=== PATIENT | female | born 1975 | race Hispanic/Latino ===

== ENCOUNTER 2016-06-15 01:28 | Emergency (ER) | payer OTHER ==
[2016-06-15] MEDS ORDERED: GENTAMICIN 0.3% OPHTH SOL 5 ML BTL As Ordered ONE (02:08)
--- NOTE | 2016-06-15 03:06 | EDDOCDS ---
Physician Documentation [facility] Name: Michelle Lazo Age: 41 yrs Sex: Female : 1975 Arrival Date: 06/15/2016 Time: 01:28 Bed TR8 Private MD: Disposition: 06/15/16 02:07 Discharged to Home/Self Care. Impression: Conjunctivitis - Acute, Bilateral. - Condition is Stable. - Discharge Instructions: Conjunctivitis (Viral and Bacterial). - Prescriptions for Gentamicin 0.3 % Ophthalmic Drops - instill 2 drops by OPHTHALMIC route every 4 hours Both eyes; 1 bottle. - Work Release Form - 2 day, Medication Reconciliation, Local Pharmacy Hours form. - Follow up: Private Physician; When: 1 - 2 days; Reason: Recheck today's complaints, Continuance of care. Follow up: Emergency Department; Reason: Worsening of conditions. Follow up: Tomi Powers; When: 1 - 2 days; Reason: Further diagnostic work-up, Recheck today's complaints, Continuance of care. - Problem is new. - Symptoms have improved. Historical: - Allergies: No known drug Allergies; - Home Meds: 1. multivitamin Oral tab 1 tab daily 2. albuterol sulfate 90 mcg/actuation Inhl HFAA 1 puff as needed 3. liver oil daily 4. med for depression - PMHx: Exercise-induced Asthma; light sensitivity; Migraine Headaches; Depression; - PSHx: ; - Social history: Smoking status: Patient uses tobacco products, current some day smoker. No barriers to communication noted, The patient speaks fluent German, Speaks appropriately for age. - Family history: Not pertinent. - : The pt / caregiver states he / she is not on anticoagulants. Home medication list is obtained from the patient, [employer] import data. - Exposure Risk Screening:: None identified. 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 9 in. (175.26 cm) (R); Pain 2/10; 01:41 Body Mass Index 27.32 (83.91 kg, 175.26 cm) km Visual Acuity: 03:05 ; NA [facility] MDM: 02:02 Pulse ox spot check ordered. ef1 02:04 Gentamicin Drops 0.3 % 2 drps Ophthalmic once; Left eye ordered. ef1 02:30 Financial registration complete. pm4 02:30 [facility] Payment Agreement was scanned into [employer] and attached to record. pm4 Administered Medications: 02:13 Drug: Gentamicin 2 drps [gentamicin 0.3 % eye drops (2 drps)] Route: Ophthalmic; Site: [facility] both eyes; Signatures: Tamera Wallace RN RN kmg1 Regina Prado, PA-C PA-C ef1 Jeb Aviles, Reg Reg pm4 The chart was reviewed and I authenticate all verbal orders and agree with the evaluation and treatment provided.Attachments: 02:30 [facility] Payment Agreement pm4 MTDD
--- NOTE | 2016-06-15 03:06 | EDDOCDS ---
Nurse's Notes [facility] Name: Michelle Lazo Age: 41 yrs Sex: Female : 1975 Arrival Date: 06/15/2016 Time: 01:28 Bed TR8 Private MD: Diagnosis: Conjunctivitis-Acute, Bilateral Presentation: 06/15 01:35 Adult Sepsis Screening: The patient does not have new or worsening altered mentation. kmg1 Patient's respiratory rate is less than 22. Systolic blood pressure is greater than 100. Patient has a qSOFA score of 0- Negative Sepsis Screen. 01:36 Presenting complaint: Patient states: "I have pink eye.". Mechanism of Injury: No km Mechanism of Injury. The patient denies any loss of vision. Suicide/Homicide risk assessment- the patient denies having any suicidal and/or homicidal ideations and does not present with any other emotional, behavioral or mental health complaints. 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 Transition of care: patient was not received from another setting of care. 01:36 Acuity: DILIA Level 5 [facility] 01:36 Method Of Arrival: Walkin/Carried/Asstd [facility] Triage Assessment: 01:41 General: Appears in no apparent distress, comfortable, Behavior is appropriate for age, kmg1 cooperative, pleasant. Pain: Location: right eye and left eye Pain currently is 1 out of 10 on a pain scale. Quality of pain is described as poking. HIV screening NA for this visit Offered previously. EENT: Eyes with exudate noted from inner aspect of conjunctiva of left eye and left inner canthus Lid(s) red. 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 multivitamin Oral tab 1 tab daily 2. albuterol sulfate 90 mcg/actuation Inhl HFAA 1 puff as needed 3. liver oil daily 4. med for depression - PMHx: Exercise-induced Asthma; light sensitivity; Migraine Headaches; Depression; - PSHx: ; - Social history: Smoking status: Patient uses tobacco products, current some day smoker. No barriers to communication noted, The patient speaks fluent [place], Speaks appropriately for age. - Family history: Not pertinent. - : The pt / caregiver states he / she is not on anticoagulants. Home medication list is obtained from the patient, [employer] import data. - Exposure Risk Screening:: None identified. Screenin:45 Screening information is obtained from the patient. Fall risk: No risks identified. km Assistance ADL's: requires no assistance with activities of daily living. Abuse/DV Screen: The patient / caregiver reports he/she is: not in a situation that causes fear, pain or injury. Nutritional screening: No deficits noted. Advance Directives: There is no active DNR order. home support is adequate. Assessment: :45 General: See Triage Assessment. [facility] 02:15 Reassessment: Patient appears in no apparent distress at this time. Patient states [facility] symptoms have not improved. No change in prior assessment. Drainage cleaned from left eye and drops applied to both. Vital Signs: 01:41 BP 113 / 78; Pulse 76; Resp 18; Temp 98.1(TE); Pulse Ox 100% on R/A; Weight 83.91 kg km (R); Height 5 ft. 9 in. (175.26 cm) (R); Pain 2/10; 01:41 Body Mass Index 27.32 (83.91 kg, 175.26 cm) [facility] Vitals: 01:41 Log In Time: June 15, 2016 at 01:30. [facility] Visual Acuity: 03:05 ; NA [facility] ED Course: 01:29 Patient visited by Marixa Hogan, Reg. hs2 01:29 Patient moved to Waiting hs2 01:38 Triage Initiated [facility] 01:45 The patient / caregiver is instructed regarding the plan of care and ED course. [facility] 01:45 No IV's were initiated during this patient's visit. No procedures done that require [facility] assistance. 01:46 Patient moved to Triage 1 kmg1 01:47 Regina Prado PA-C is PHCP. ef1 01:47 Gerry Watt DO is Attending Physician. ef1 01:47 Patient visited by Regina Prado PA-C. ef1 02:10 Tomi Powers is Referral Physician. ef1 02:21 Patient moved to 8 km 02:30 [facility] Payment Agreement was scanned into [employer] and attached to record. pm4 Administered Medications: 02:13 Drug: Gentamicin 2 drps [gentamicin 0.3 % eye drops (2 drps)] Route: Ophthalmic; Site: [facility] both eyes; Order Results: There are currently no results for this order. Outcome: 02:07 Discharge ordered by Provider. ef1 02:15 Discharge Assessment: Patient awake, alert and oriented x 3. No cognitive and/or kmg1 functional deficits noted. Patient verbalized understanding of disposition instructions. Patient awake and alert. patient administered narcotics - no. The following High Risk Discharge criteria are identified: None. Condition: stable. Discharge instructions given to patient, Instructed on discharge instructions, follow up and referral plans. medication usage, Demonstrated understanding of instructions, medications, Pt was receptive of discharge instructions/ teaching. Prescriptions given X 1. No special radiology studies were completed. Property sent home with patient. 03:05 Patient left the ED. [facility] Signatures: Tamera Wallace, RN RN g1 Regina Prado, VIVIANA PA-C ef1 Marixa Hogan, Reg Reg hs2 Jeb Aviles, Reg Reg pm4 Corrections: (The following items were deleted from the chart) 02:09 01:41 BP 113 / 78; Pulse 76bpm; Resp 18bpm; Temp 98.1F Temporal; 83.91 kg Reported; kmg1 Height 5 ft. 9 in. Reported; BMI: 27.3; Pain 2/10; kmg1 MTDD
--- NOTE | 2016-06-17 04:06 | EDDOCDS ---
Physician Documentation [facility] Name: Michelle Lazo Age: 41 yrs Sex: Female : 1975 Arrival Date: 06/15/2016 Time: 01:28 Bed TR8 Private MD: Disposition: 06/15/16 02:07 Discharged to Home/Self Care. Impression: Conjunctivitis - Acute, Bilateral. - Condition is Stable. - Discharge Instructions: Conjunctivitis (Viral and Bacterial). - Prescriptions for Gentamicin 0.3 % Ophthalmic Drops - instill 2 drops by OPHTHALMIC route every 4 hours Both eyes; 1 bottle. - Work Release Form - 2 day, Medication Reconciliation, Local Pharmacy Hours form. - Follow up: Private Physician; When: 1 - 2 days; Reason: Recheck today's complaints, Continuance of care. Follow up: Emergency Department; Reason: Worsening of conditions. Follow up: Tomi Powers; When: 1 - 2 days; Reason: Further diagnostic work-up, Recheck today's complaints, Continuance of care. - Problem is new. - Symptoms have improved. Historical: - Allergies: No known drug Allergies; - Home Meds: 1. multivitamin Oral tab 1 tab daily 2. albuterol sulfate 90 mcg/actuation Inhl HFAA 1 puff as needed 3. liver oil daily 4. med for depression - PMHx: Exercise-induced Asthma; light sensitivity; Migraine Headaches; Depression; - PSHx: ; - Social history: Smoking status: Patient uses tobacco products, current some day smoker. No barriers to communication noted, The patient speaks fluent Monegasque, Speaks appropriately for age. - Family history: Not pertinent. - : The pt / caregiver states he / she is not on anticoagulants. Home medication list is obtained from the patient, [employer] import data. - Exposure Risk Screening:: None identified. 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 9 in. (175.26 cm) (R); Pain 2/10; 01:41 Body Mass Index 27.32 (83.91 kg, 175.26 cm) [facility] Visual Acuity: 03:05 ; NA [facility] MDM: 02:02 Pulse ox spot check ordered. ef1 02:04 Gentamicin Drops 0.3 % 2 drps Ophthalmic once; Left eye ordered. ef1 02:30 Financial registration complete. pm4 02:30 [facility] Payment Agreement was scanned into [employer] and attached to record. pm4 12:01 T-Sheet-- Draft Copy was scanned into [employer] and attached to record. gb Administered Medications: 02:13 Drug: Gentamicin 2 drps [gentamicin 0.3 % eye drops (2 drps)] Route: Ophthalmic; Site: [facility] both eyes; Signatures: Tamera Wallace RN RN kmg1 Maria L Basilio, Reg Reg gb Regina Prado, PA-C PA-C ef1 Jeb Aviles, Reg Reg pm4 The chart was reviewed and I authenticate all verbal orders and agree with the evaluation and treatment provided.Attachments: 02:30 [facility] Payment Agreement pm4 12:01 T-Sheet-- Draft Copy gb Chart Complete MTDD
--- NOTE | 2016-06-17 04:06 | EDDOCDS ---
Physician Documentation [facility] Name: Michelle Lazo Age: 41 yrs Sex: Female : 1975 Arrival Date: 06/15/2016 Time: 01:28 Bed TR8 Private MD: Disposition: 06/15/16 02:07 Discharged to Home/Self Care. Impression: Conjunctivitis - Acute, Bilateral. - Condition is Stable. - Discharge Instructions: Conjunctivitis (Viral and Bacterial). - Prescriptions for Gentamicin 0.3 % Ophthalmic Drops - instill 2 drops by OPHTHALMIC route every 4 hours Both eyes; 1 bottle. - Work Release Form - 2 day, Medication Reconciliation, Local Pharmacy Hours form. - Follow up: Private Physician; When: 1 - 2 days; Reason: Recheck today's complaints, Continuance of care. Follow up: Emergency Department; Reason: Worsening of conditions. Follow up: Tomi Powers; When: 1 - 2 days; Reason: Further diagnostic work-up, Recheck today's complaints, Continuance of care. - Problem is new. - Symptoms have improved. Historical: - Allergies: No known drug Allergies; - Home Meds: 1. multivitamin Oral tab 1 tab daily 2. albuterol sulfate 90 mcg/actuation Inhl HFAA 1 puff as needed 3. liver oil daily 4. med for depression - PMHx: Exercise-induced Asthma; light sensitivity; Migraine Headaches; Depression; - PSHx: ; - Social history: Smoking status: Patient uses tobacco products, current some day smoker. No barriers to communication noted, The patient speaks fluent Guyanese, Speaks appropriately for age. - Family history: Not pertinent. - : The pt / caregiver states he / she is not on anticoagulants. Home medication list is obtained from the patient, [employer] import data. - Exposure Risk Screening:: None identified. 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 9 in. (175.26 cm) (R); Pain 2/10; 01:41 Body Mass Index 27.32 (83.91 kg, 175.26 cm) [facility] Visual Acuity: 03:05 ; NA [facility] MDM: 02:02 Pulse ox spot check ordered. ef1 02:04 Gentamicin Drops 0.3 % 2 drps Ophthalmic once; Left eye ordered. ef1 02:30 Financial registration complete. pm4 02:30 [facility] Payment Agreement was scanned into [employer] and attached to record. pm4 12:01 T-Sheet-- Draft Copy was scanned into [employer] and attached to record. gb Administered Medications: 02:13 Drug: Gentamicin 2 drps [gentamicin 0.3 % eye drops (2 drps)] Route: Ophthalmic; Site: [facility] both eyes; Signatures: Tamera Wallace RN RN kmg1 Maria L Basilio, Reg Reg gb Regina Prado, PA-C PA-C ef1 Jeb Aviles, Reg Reg pm4 The chart was reviewed and I authenticate all verbal orders and agree with the evaluation and treatment provided.Attachments: 02:30 [facility] Payment Agreement pm4 12:01 T-Sheet-- Draft Copy gb Chart Complete MTDD
--- NOTE | 2016-06-17 04:06 | EDDOCDS ---
Nurse's Notes [facility] Name: Michelle Lazo Age: 41 yrs Sex: Female : 1975 Arrival Date: 06/15/2016 Time: 01:28 Bed TR8 Private MD: Diagnosis: Conjunctivitis-Acute, Bilateral Presentation: 06/15 01:35 Adult Sepsis Screening: The patient does not have new or worsening altered mentation. kmg1 Patient's respiratory rate is less than 22. Systolic blood pressure is greater than 100. Patient has a qSOFA score of 0- Negative Sepsis Screen. 01:36 Presenting complaint: Patient states: "I have pink eye.". Mechanism of Injury: No km Mechanism of Injury. The patient denies any loss of vision. Suicide/Homicide risk assessment- the patient denies having any suicidal and/or homicidal ideations and does not present with any other emotional, behavioral or mental health complaints. Status: Patient is not a facility service manager or dependent. Transition of care: patient was not received from another setting of care. 01:36 Acuity: DILIA Level 5 [facility] 01:36 Method Of Arrival: Walkin/Carried/Asstd [facility] Triage Assessment: 01:41 General: Appears in no apparent distress, comfortable, Behavior is appropriate for age, kmg1 cooperative, pleasant. Pain: Location: right eye and left eye Pain currently is 1 out of 10 on a pain scale. Quality of pain is described as poking. HIV screening NA for this visit Offered previously. EENT: Eyes with exudate noted from inner aspect of conjunctiva of left eye and left inner canthus Lid(s) red. 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 multivitamin Oral tab 1 tab daily 2. albuterol sulfate 90 mcg/actuation Inhl HFAA 1 puff as needed 3. liver oil daily 4. med for depression - PMHx: Exercise-induced Asthma; light sensitivity; Migraine Headaches; Depression; - PSHx: ; - Social history: Smoking status: Patient uses tobacco products, current some day smoker. No barriers to communication noted, The patient speaks fluent East Timorese, Speaks appropriately for age. - Family history: Not pertinent. - : The pt / caregiver states he / she is not on anticoagulants. Home medication list is obtained from the patient, [employer] import data. - Exposure Risk Screening:: None identified. Screenin:45 Screening information is obtained from the patient. Fall risk: No risks identified. km Assistance ADL's: requires no assistance with activities of daily living. Abuse/DV Screen: The patient / caregiver reports he/she is: not in a situation that causes fear, pain or injury. Nutritional screening: No deficits noted. Advance Directives: There is no active DNR order. home support is adequate. Assessment: :45 General: See Triage Assessment. [facility] 02:15 Reassessment: Patient appears in no apparent distress at this time. Patient states [facility] symptoms have not improved. No change in prior assessment. Drainage cleaned from left eye and drops applied to both. Vital Signs: 01:41 BP 113 / 78; Pulse 76; Resp 18; Temp 98.1(TE); Pulse Ox 100% on R/A; Weight 83.91 kg km (R); Height 5 ft. 9 in. (175.26 cm) (R); Pain 2/10; 01:41 Body Mass Index 27.32 (83.91 kg, 175.26 cm) [facility] Vitals: 01:41 Log In Time: June 15, 2016 at 01:30. [facility] Visual Acuity: 03:05 ; NA [facility] ED Course: 01:29 Patient visited by Marixa Hogan, Reg. hs2 01:29 Patient moved to Waiting hs2 01:38 Triage Initiated [facility] 01:45 The patient / caregiver is instructed regarding the plan of care and ED course. [facility] 01:45 No IV's were initiated during this patient's visit. No procedures done that require [facility] assistance. 01:46 Patient moved to Triage 1 kmg1 01:47 [facility]ado [facility] ef1 01:47 Gerry Watt DO is Attending Physician. ef1 01:47 Patient visited by Regina Prado PA-C. ef1 02:10 Tomi Powers is Referral Physician. ef1 02:21 Patient moved to TR8 km 02:30 [facility] Payment Agreement was scanned into [employer] and attached to record. pm4 12:01 T-Sheet-- Draft Copy was scanned into [employer] and attached to record. gb Administered Medications: 02:13 Drug: Gentamicin 2 drps [gentamicin 0.3 % eye drops (2 drps)] Route: Ophthalmic; Site: [facility] both eyes; Order Results: There are currently no results for this order. Outcome: 02:07 Discharge ordered by Provider. ef1 02:15 Discharge Assessment: Patient awake, alert and oriented x 3. No cognitive and/or kmg1 functional deficits noted. Patient verbalized understanding of disposition instructions. Patient awake and alert. patient administered narcotics - no. The following High Risk Discharge criteria are identified: None. Condition: stable. Discharge instructions given to patient, Instructed on discharge instructions, follow up and referral plans. medication usage, Demonstrated understanding of instructions, medications, Pt was receptive of discharge instructions/ teaching. Prescriptions given X 1. No special radiology studies were completed. Property sent home with patient. 03:05 Patient left the ED. [facility] Signatures: Tamera Wallace RN RN [facility] Maria L Basilio, Reg Reg gb Regina Prado, PA-C PA-C ef1 Marixa Hogan, Reg Reg hs2 Jeb Aviles, Reg Reg pm4 Corrections: (The following items were deleted from the chart) 02:09 01:41 BP 113 / 78; Pulse 76bpm; Resp 18bpm; Temp 98.1F Temporal; 83.91 kg Reported; kmg1 Height 5 ft. 9 in. Reported; BMI: 27.3; Pain 2/10; kmg1 Chart Complete MTDD
== END 2016-06-15 03:05 | disposition home or self-care (01) ==
LOC: M ED 01:28
DX: H10.33 Unspecified acute conjunctivitis, bilateral (principal); J45.990 Exercise induced bronchospasm; G43.909 Migraine, unspecified, not intractable, without status migrainosus; F32.9 Major depressive disorder, single episode, unspecified; Z79.899 Other long term (current) drug therapy; Z79.51 Long term (current) use of inhaled steroids; F17.210 Nicotine dependence, cigarettes, uncomplicated

== ENCOUNTER 2016-06-20 01:51 | Emergency (ER) | payer OTHER ==
[2016-06-20] MEDS ORDERED: CIPROFLOXACIN 0.3% OPHTH SOLN 2.5ML As Ordered ONE (02:09)
--- NOTE | 2016-06-20 02:19 | EDDOCDS ---
Physician Documentation [facility] Name: Michelle Lazo Age: 41 yrs Sex: Female : 1975 Arrival Date: 06/20/2016 Time: 01:51 Bed Triage 1 Private MD: Malissa Villasenor; Alma Heaton C Disposition: 06/20/16 02:10 Discharged to Home/Self Care. Impression: Other acute conjunctivitis - bacterial. - Condition is Stable. - Discharge Instructions: Bacterial Conjunctivitis. - Medication Reconciliation, Local Pharmacy Hours form. - Follow up: Tomi Powers; When: Call to arrange an appointment; Reason: Recheck today's complaints, Continuance of care. - Problem is new. - Symptoms are unchanged. - Notes: 1-2 drops in each eye every 2hrs while awake x 2 days than every 4 hours for 5 five days Historical: - Allergies: No known drug Allergies; - Home Meds: 1. albuterol sulfate 90 mcg/actuation Inhl HFAA 1 puff as needed 2. liver oil daily 3. med for depression 4. multivitamin Oral tab 1 tab daily - PMHx: Depression; Exercise-induced Asthma; light sensitivity; Migraine Headaches; - PSHx: ; - Social history: Smoking status: Patient uses tobacco products, light tobacco smoker. No barriers to communication noted, The patient speaks fluent Romansh, Speaks appropriately for age. - Family history: Not pertinent. - : The pt / caregiver states he / she is not on anticoagulants. Home medication list is obtained from the patient. - Exposure Risk Screening:: None identified. 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 9 in. (175.26 cm) (R); Pain 0/10; 01:56 Body Mass Index 27.32 (83.91 kg, 175.26 cm) [facility] MDM: 02:08 Ciprofloxacin Drops 0.3 % 2 drps Ophthalmic once ordered. mo1 Administered Medications: 02:11 Drug: Ciprofloxacin 2 drps [ciprofloxacin 0.3 % eye drops (2 drps)] Route: Ophthalmic; oliver Site: both eyes; Signatures: Sulaiman Colon PA PA mo1 Jeremiah Powell,RN RN oliver MTDD
--- NOTE | 2016-06-20 02:19 | EDDOCDS ---
Nurse's Notes [facility] Name: Michelle Lazo Age: 41 yrs Sex: Female : 1975 Arrival Date: 06/20/2016 Time: 01:51 Bed Triage 1 Private MD: Malissa Villasenor; Alma Heaton C Diagnosis: Other acute conjunctivitis-bacterial Presentation: 06/20 01:55 Presenting complaint: Patient states: Patient reports that she has pink eye and she jmb feels that it is getting worse. Symptoms present for past month. Patient seen last week for same issue. Adult Sepsis Screening: The patient does not have new or worsening altered mentation. Patient's respiratory rate is less than 22. Systolic blood pressure is greater than 100. Patient has a qSOFA score of 0- Negative Sepsis Screen. Suicide/Homicide risk assessment- the patient denies having any suicidal and/or homicidal ideations and does not present with any other emotional, behavioral or mental health complaints. Status: Patient is not a financial services director or dependent. Transition of care: patient was not received from another setting of care. 01:55 Acuity: DILIA Level 4 [facility] 01:55 Method Of Arrival: Walkin/Carried/Asstd [facility] Triage Assessment: 01:56 General: Appears in no apparent distress, Behavior is appropriate for age, cooperative. [facility] Pain: Denies pain. HIV screening NA for this visit Offered previously. Neurological: Level of Consciousness is awake, alert, obeys commands, Oriented to person, place, time, Speech is normal, Facial symmetry appears normal, Facial symmetry: tongue is midline. Respiratory: Airway is patent Respiratory effort is even, unlabored, Respiratory pattern is regular, symmetrical. GI: Abdomen is non- distended. Derm: Skin is pink, warm & dry. Musculoskeletal: Range of motion intact in all extremities. CO OP: 01:56 LMP 06/15/2016 [facility] Historical: - Allergies: No known drug Allergies; - Home Meds: 1. albuterol sulfate 90 mcg/actuation Inhl HFAA 1 puff as needed 2. liver oil daily 3. med for depression 4. multivitamin Oral tab 1 tab daily - PMHx: Depression; Exercise-induced Asthma; light sensitivity; Migraine Headaches; - PSHx: ; - Social history: Smoking status: Patient uses tobacco products, light tobacco smoker. No barriers to communication noted, The patient speaks fluent Occitan, Speaks appropriately for age. - Family history: Not pertinent. - : The pt / caregiver states he / she is not on anticoagulants. Home medication list is obtained from the patient. - Exposure Risk Screening:: None identified. Screenin:16 Screening information is obtained from the patient. Fall risk: No risks identified. b Assistance ADL's: requires no assistance with activities of daily living. Abuse/DV Screen: The patient / caregiver reports he/she is: not in a situation that causes fear, pain or injury. Nutritional screening: No deficits noted. Advance Directives: Currently, there is no health care proxy. There is no active DNR order. There is no living will. There is no Power of Central Control Room Operator. home support is adequate. Assessment: 02:16 General: Patient instructed on discharge instructions. Patient asked if there were any [facility] questions regarding discharge, patient stated no. Patient signed discharge instructions. Patient discharged in stable condition. . Vital Signs: 01:56 BP 145 / 87; Pulse 97; Resp 18; Temp 97.3; Pulse Ox 99% on R/A; Weight 83.91 kg (R); b Height 5 ft. 9 in. (175.26 cm) (R); Pain 0/10; 01:56 Body Mass Index 27.32 (83.91 kg, 175.26 cm) [facility] Vitals: 01:56 Log In Time: June 20, 2016 at 01:31. [facility] ED Course: 01:52 Patient visited by Jeb Aviles Reg. pm4 01:52 Patient moved to Waiting pm4 01:53 Alma Heaton is Private Physician. pm4 01:53 Malissa Villasenor is Private Physician. pm4 01:56 Triage Initiated jmb 01:59 [facility] mo1 01:59 Masood Amin DO is Attending Physician. mo1 01:59 Patient moved to Triage 1 jmb 02:09 Patient visited by Sulaiman Colon PA. mo1 02:10 Tomi Powers is Referral Physician. mo1 02:16 The patient / caregiver is instructed regarding the plan of care and ED course. jmb 02:16 No IV's were initiated during this patient's visit. No procedures done that require jmb assistance. Administered Medications: 02:11 Drug: Ciprofloxacin 2 drps [ciprofloxacin 0.3 % eye drops (2 drps)] Route: Ophthalmic; jeaneth Site: both eyes; Order Results: There are currently no results for this order. Outcome: 02:10 Discharge ordered by Provider. mo1 02:16 Discharge Assessment: Patient awake, alert and oriented x 3. No cognitive and/or jmb functional deficits noted. Patient verbalized understanding of disposition instructions. Patient awake and alert. obeys commands, Oriented to person, place and time. Patient verbalized understanding of disposition instructions. Patient has no functional deficits. patient administered narcotics - no. The following High Risk Discharge criteria are identified: None. Discharged to home ambulatory. Condition: stable. Discharge instructions given to patient, Instructed on discharge instructions, follow up and referral plans. Demonstrated understanding of instructions, Pt was receptive of discharge instructions/ teaching. No special radiology studies were completed. Property sent home with patient. 02:17 Patient left the ED. oliver Signatures: Sulaiman Colon PA PA mo1 Jeremiah Powell,SUMI RN Jeb Mcdonnell, Reg Reg pm4 MATEUSZ
--- NOTE | 2016-06-22 03:18 | EDDOCDS ---
Physician Documentation [facility] Name: Michelle Orr Age: 41 yrs Sex: Female : 1975 Arrival Date: 06/20/2016 Time: 01:51 Bed Triage 1 Private MD: Malissa Villasenor; Alma Heaton C Disposition: 06/20/16 02:10 Discharged to Home/Self Care. Impression: Other acute conjunctivitis - bacterial. - Condition is Stable. - Discharge Instructions: Bacterial Conjunctivitis. - Medication Reconciliation, Local Pharmacy Hours form. - Follow up: Tomi Powers; When: Call to arrange an appointment; Reason: Recheck today's complaints, Continuance of care. - Problem is new. - Symptoms are unchanged. - Notes: 1-2 drops in each eye every 2hrs while awake x 2 days than every 4 hours for 5 five days Historical: - Allergies: No known drug Allergies; - Home Meds: 1. albuterol sulfate 90 mcg/actuation Inhl HFAA 1 puff as needed 2. liver oil daily 3. med for depression 4. multivitamin Oral tab 1 tab daily - PMHx: Depression; Exercise-induced Asthma; light sensitivity; Migraine Headaches; - PSHx: ; - Social history: Smoking status: Patient uses tobacco products, light tobacco smoker. No barriers to communication noted, The patient speaks fluent Polish, Speaks appropriately for age. - Family history: Not pertinent. - : The pt / caregiver states he / she is not on anticoagulants. Home medication list is obtained from the patient. - Exposure Risk Screening:: None identified. 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 9 in. (175.26 cm) (R); Pain 0/10; 01:56 Body Mass Index 27.32 (83.91 kg, 175.26 cm) jmb MDM: 02:08 Ciprofloxacin Drops 0.3 % 2 drps Ophthalmic once ordered. mo1 02:22 [facility] Payment Agreement was scanned into [employer] and attached to record. hs2 02:28 Financial registration complete. hs2 14:20 T-Sheet-- Draft Copy was scanned into [employer] and attached to record. gb Administered Medications: 02:11 Drug: Ciprofloxacin 2 drps [ciprofloxacin 0.3 % eye drops (2 drps)] Route: Ophthalmic; oliver Site: both eyes; Signatures: Maria L Basilio, Reg Reg gb Sulaiman Colon PA PA mo1 Jeremiah Powell RN RN jmb Marixa Hogan, Reg Reg hs2 The chart was reviewed and I authenticate all verbal orders and agree with the evaluation and treatment provided.Attachments: 02:22 [facility] Payment Agreement hs2 14:20 T-Sheet-- Draft Copy gb Chart Complete MTDD
--- NOTE | 2016-06-22 03:18 | EDDOCDS ---
Nurse's Notes [facility] Name: Michelle Orr Age: 41 yrs Sex: Female : 1975 Arrival Date: 06/20/2016 Time: 01:51 Bed Triage 1 Private MD: Malissa Villasenor; Alma Heaton C Diagnosis: Other acute conjunctivitis-bacterial Presentation: 06/20 01:55 Presenting complaint: Patient states: Patient reports that she has pink eye and she jmb feels that it is getting worse. Symptoms present for past month. Patient seen last week for same issue. Adult Sepsis Screening: The patient does not have new or worsening altered mentation. Patient's respiratory rate is less than 22. Systolic blood pressure is greater than 100. Patient has a qSOFA score of 0- Negative Sepsis Screen. Suicide/Homicide risk assessment- the patient denies having any suicidal and/or homicidal ideations and does not present with any other emotional, behavioral or mental health complaints. Status: Patient is not a field service technician poultry or dependent. Transition of care: patient was not received from another setting of care. 01:55 Acuity: DILIA Level 4 [facility] 01:55 Method Of Arrival: Walkin/Carried/Asstd [facility] Triage Assessment: 01:56 General: Appears in no apparent distress, Behavior is appropriate for age, cooperative. [facility] Pain: Denies pain. HIV screening NA for this visit Offered previously. Neurological: Level of Consciousness is awake, alert, obeys commands, Oriented to person, place, time, Speech is normal, Facial symmetry appears normal, Facial symmetry: tongue is midline. Respiratory: Airway is patent Respiratory effort is even, unlabored, Respiratory pattern is regular, symmetrical. GI: Abdomen is non- distended. Derm: Skin is pink, warm & dry. Musculoskeletal: Range of motion intact in all extremities. 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 Historical: - Allergies: No known drug Allergies; - Home Meds: 1. albuterol sulfate 90 mcg/actuation Inhl HFAA 1 puff as needed 2. liver oil daily 3. med for depression 4. multivitamin Oral tab 1 tab daily - PMHx: Depression; Exercise-induced Asthma; light sensitivity; Migraine Headaches; - PSHx: ; - Social history: Smoking status: Patient uses tobacco products, light tobacco smoker. No barriers to communication noted, The patient speaks fluent Faroese, Speaks appropriately for age. - Family history: Not pertinent. - : The pt / caregiver states he / she is not on anticoagulants. Home medication list is obtained from the patient. - Exposure Risk Screening:: None identified. Screenin:16 Screening information is obtained from the patient. Fall risk: No risks identified. jmb Assistance ADL's: requires no assistance with activities of daily living. Abuse/DV Screen: The patient / caregiver reports he/she is: not in a situation that causes fear, pain or injury. Nutritional screening: No deficits noted. Advance Directives: Currently, there is no health care proxy. There is no active DNR order. There is no living will. There is no Power of Internet Cafe Manager. home support is adequate. Assessment: 02:16 General: Patient instructed on discharge instructions. Patient asked if there were any [facility] questions regarding discharge, patient stated no. Patient signed discharge instructions. Patient discharged in stable condition. . Vital Signs: 01:56 BP 145 / 87; Pulse 97; Resp 18; Temp 97.3; Pulse Ox 99% on R/A; Weight 83.91 kg (R); b Height 5 ft. 9 in. (175.26 cm) (R); Pain 0/10; 01:56 Body Mass Index 27.32 (83.91 kg, 175.26 cm) [facility] Vitals: 01:56 Log In Time: June 20, 2016 at 01:31. [facility] ED Course: 01:52 Patient visited by Jeb Aviles Reg. pm4 01:52 Patient moved to Waiting pm4 01:53 Alma Heaton is Private Physician. pm4 01:53 Malissa Villasenor is Private Physician. pm4 01:56 Triage Initiated jmb 01:59 Sulaiman Colon PA is PHCP. mo1 01:59 Masood Amin DO is Attending Physician. mo1 01:59 Patient moved to Triage 1 jmb 02:09 Patient visited by Sulaiman Colon PA. mo1 02:10 Tomi Powers is Referral Physician. mo1 02:16 The patient / caregiver is instructed regarding the plan of care and ED course. jmb 02:16 No IV's were initiated during this patient's visit. No procedures done that require jmb assistance. 02:22 [facility] Payment Agreement was scanned into [employer] and attached to record. hs2 05:20 Patient name changed from Michelle\S\Mattie\S\Coellohidalgo\S\ to Michelle\S\Mattie\S\Coellohildago.EDMS 14:20 T-Sheet-- Draft Copy was scanned into [employer] and attached to record. gb Administered Medications: 02:11 Drug: Ciprofloxacin 2 drps [ciprofloxacin 0.3 % eye drops (2 drps)] Route: Ophthalmic; b Site: both eyes; Order Results: There are currently no results for this order. Outcome: 02:10 Discharge ordered by Provider. mo1 02:16 Discharge Assessment: Patient awake, alert and oriented x 3. No cognitive and/or jmb functional deficits noted. Patient verbalized understanding of disposition instructions. Patient awake and alert. obeys commands, Oriented to person, place and time. Patient verbalized understanding of disposition instructions. Patient has no functional deficits. patient administered narcotics - no. The following High Risk Discharge criteria are identified: None. Discharged to home ambulatory. Condition: stable. Discharge instructions given to patient, Instructed on discharge instructions, follow up and referral plans. Demonstrated understanding of instructions, Pt was receptive of discharge instructions/ teaching. No special radiology studies were completed. Property sent home with patient. 02:17 Patient left the ED. oliver Signatures: Dispatcher [employer] EDMS Maria L Basilio, Reg Reg gb Sulaiman Colon PA PA mo1 Jeremiah Powell RN RN chiragb Marixa Hogan, Reg Reg hs2 Jeb Aviles, Reg Reg pm4 Chart Complete MTDD
--- NOTE | 2016-06-22 03:18 | EDDOCDS ---
Physician Documentation [facility] Name: Michelle Orr Age: 41 yrs Sex: Female : 1975 Arrival Date: 06/20/2016 Time: 01:51 Bed Triage 1 Private MD: Malissa Villasenor; Alma Heaton C Disposition: 06/20/16 02:10 Discharged to Home/Self Care. Impression: Other acute conjunctivitis - bacterial. - Condition is Stable. - Discharge Instructions: Bacterial Conjunctivitis. - Medication Reconciliation, Local Pharmacy Hours form. - Follow up: Tomi Poewrs; When: Call to arrange an appointment; Reason: Recheck today's complaints, Continuance of care. - Problem is new. - Symptoms are unchanged. - Notes: 1-2 drops in each eye every 2hrs while awake x 2 days than every 4 hours for 5 five days Historical: - Allergies: No known drug Allergies; - Home Meds: 1. albuterol sulfate 90 mcg/actuation Inhl HFAA 1 puff as needed 2. liver oil daily 3. med for depression 4. multivitamin Oral tab 1 tab daily - PMHx: Depression; Exercise-induced Asthma; light sensitivity; Migraine Headaches; - PSHx: ; - Social history: Smoking status: Patient uses tobacco products, light tobacco smoker. No barriers to communication noted, The patient speaks fluent Slovak, Speaks appropriately for age. - Family history: Not pertinent. - : The pt / caregiver states he / she is not on anticoagulants. Home medication list is obtained from the patient. - Exposure Risk Screening:: None identified. 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 9 in. (175.26 cm) (R); Pain 0/10; 01:56 Body Mass Index 27.32 (83.91 kg, 175.26 cm) jmb MDM: 02:08 Ciprofloxacin Drops 0.3 % 2 drps Ophthalmic once ordered. mo1 02:22 [facility] Payment Agreement was scanned into [employer] and attached to record. hs2 02:28 Financial registration complete. hs2 14:20 T-Sheet-- Draft Copy was scanned into [employer] and attached to record. gb Administered Medications: 02:11 Drug: Ciprofloxacin 2 drps [ciprofloxacin 0.3 % eye drops (2 drps)] Route: Ophthalmic; oliver Site: both eyes; Signatures: Maria L Basilio, Reg Reg gb Sulaiman Colon PA PA mo1 Jeremiah Powell RN RN jmb Marixa Hogan, Reg Reg hs2 The chart was reviewed and I authenticate all verbal orders and agree with the evaluation and treatment provided.Attachments: 02:22 [facility] Payment Agreement hs2 14:20 T-Sheet-- Draft Copy gb Chart Complete MTDD
--- NOTE | 2016-06-22 11:40 | EDDOCDS ---
Nurse's Notes [facility] Name: Michelle Orr Age: 41 yrs Sex: Female : 1975 Arrival Date: 06/20/2016 Time: 01:51 Bed Triage 1 Private MD: Malissa Villasenor; Alma Heaton C Diagnosis: Other acute conjunctivitis-bacterial Presentation: 06/20 01:55 Presenting complaint: Patient states: Patient reports that she has pink eye and she jmb feels that it is getting worse. Symptoms present for past month. Patient seen last week for same issue. Adult Sepsis Screening: The patient does not have new or worsening altered mentation. Patient's respiratory rate is less than 22. Systolic blood pressure is greater than 100. Patient has a qSOFA score of 0- Negative Sepsis Screen. Suicide/Homicide risk assessment- the patient denies having any suicidal and/or homicidal ideations and does not present with any other emotional, behavioral or mental health complaints. Status: Patient is not a elevator service mechanic or dependent. Transition of care: patient was not received from another setting of care. 01:55 Acuity: DILIA Level 4 [facility] 01:55 Method Of Arrival: Walkin/Carried/Asstd [facility] Triage Assessment: 01:56 General: Appears in no apparent distress, Behavior is appropriate for age, cooperative. [facility] Pain: Denies pain. HIV screening NA for this visit Offered previously. Neurological: Level of Consciousness is awake, alert, obeys commands, Oriented to person, place, time, Speech is normal, Facial symmetry appears normal, Facial symmetry: tongue is midline. Respiratory: Airway is patent Respiratory effort is even, unlabored, Respiratory pattern is regular, symmetrical. GI: Abdomen is non- distended. Derm: Skin is pink, warm & dry. Musculoskeletal: Range of motion intact in all extremities. 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 albuterol sulfate 90 mcg/actuation Inhl HFAA 1 puff as needed 2. liver oil daily 3. med for depression 4. multivitamin Oral tab 1 tab daily - PMHx: Depression; Exercise-induced Asthma; light sensitivity; Migraine Headaches; - PSHx: ; - Social history: Smoking status: Patient uses tobacco products, light tobacco smoker. No barriers to communication noted, The patient speaks fluent Swedish, Speaks appropriately for age. - Family history: Not pertinent. - : The pt / caregiver states he / she is not on anticoagulants. Home medication list is obtained from the patient. - Exposure Risk Screening:: None identified. Screenin:16 Screening information is obtained from the patient. Fall risk: No risks identified. jmb Assistance ADL's: requires no assistance with activities of daily living. Abuse/DV Screen: The patient / caregiver reports he/she is: not in a situation that causes fear, pain or injury. Nutritional screening: No deficits noted. Advance Directives: Currently, there is no health care proxy. There is no active DNR order. There is no living will. There is no Power of Vice President Sales. home support is adequate. Assessment: 02:16 General: Patient instructed on discharge instructions. Patient asked if there were any [facility] questions regarding discharge, patient stated no. Patient signed discharge instructions. Patient discharged in stable condition. . Vital Signs: 01:56 BP 145 / 87; Pulse 97; Resp 18; Temp 97.3; Pulse Ox 99% on R/A; Weight 83.91 kg (R); b Height 5 ft. 9 in. (175.26 cm) (R); Pain 0/10; 01:56 Body Mass Index 27.32 (83.91 kg, 175.26 cm) [facility] Vitals: 01:56 Log In Time: June 20, 2016 at 01:31. [facility] ED Course: 01:52 Patient visited by Jeb Aviles Reg. pm4 01:52 Patient moved to Waiting pm4 01:53 Alma Heaton is Private Physician. pm4 01:53 Malissa Villasenor is Private Physician. pm4 01:56 Triage Initiated jmb 01:59 Sulaiman Colon PA is PHCP. mo1 01:59 Masood Amin DO is Attending Physician. mo1 01:59 Patient moved to Triage 1 jmb 02:09 Patient visited by Sulaiman Colon PA. mo1 02:10 Tomi Powers is Referral Physician. mo1 02:16 The patient / caregiver is instructed regarding the plan of care and ED course. jmb 02:16 No IV's were initiated during this patient's visit. No procedures done that require jmb assistance. 02:22 [facility] Payment Agreement was scanned into [employer] and attached to record. hs2 05:20 Patient name changed from Michelle\S\Mattie\S\Coellohidalgo\S\ to Michelle\S\Mattie\S\Coellohildago.EDMS 14:20 T-Sheet-- Draft Copy was scanned into [employer]apps and attached to record. gb Administered Medications: 02:11 Drug: Ciprofloxacin 2 drps [ciprofloxacin 0.3 % eye drops (2 drps)] Route: Ophthalmic; [facility] Site: both eyes; Order Results: There are currently no results for this order. Outcome: 02:10 Discharge ordered by Provider. mo1 02:16 Discharge Assessment: Patient awake, alert and oriented x 3. No cognitive and/or jmb functional deficits noted. Patient verbalized understanding of disposition instructions. Patient awake and alert. obeys commands, Oriented to person, place and time. Patient verbalized understanding of disposition instructions. Patient has no functional deficits. patient administered narcotics - no. The following High Risk Discharge criteria are identified: None. Discharged to home ambulatory. Condition: stable. Discharge instructions given to patient, Instructed on discharge instructions, follow up and referral plans. Demonstrated understanding of instructions, Pt was receptive of discharge instructions/ teaching. No special radiology studies were completed. Property sent home with patient. 02:17 Patient left the ED. b Addendum: 06/22/2016 11:39 Narrative: appt made for 06/23/[address] rinaldi. srm Signatures: Dispatcher [facility] EDDC Lacy Upton RN RN srm Maria L Basilio, Reg Reg gb Sulaiman Colon PA PA mo1 Jeremiah Powell RN RN jmb Marixa Hogan, Reg Reg hs2 Jeb Aviles, Reg Reg pm4 MTDD
--- NOTE | 2016-06-22 11:40 | EDDOCDS ---
Physician Documentation [facility] Name: Michelle Orr Age: 41 yrs Sex: Female : 1975 Arrival Date: 06/20/2016 Time: 01:51 Bed Triage 1 Private MD: Malissa Villasenor; Alma Heaton C Disposition: 06/20/16 02:10 Discharged to Home/Self Care. Impression: Other acute conjunctivitis - bacterial. - Condition is Stable. - Discharge Instructions: Bacterial Conjunctivitis. - Medication Reconciliation, Local Pharmacy Hours form. - Follow up: Tomi Powers; When: Call to arrange an appointment; Reason: Recheck today's complaints, Continuance of care. - Problem is new. - Symptoms are unchanged. - Notes: 1-2 drops in each eye every 2hrs while awake x 2 days than every 4 hours for 5 five days Historical: - Allergies: No known drug Allergies; - Home Meds: 1. albuterol sulfate 90 mcg/actuation Inhl HFAA 1 puff as needed 2. liver oil daily 3. med for depression 4. multivitamin Oral tab 1 tab daily - PMHx: Depression; Exercise-induced Asthma; light sensitivity; Migraine Headaches; - PSHx: ; - Social history: Smoking status: Patient uses tobacco products, light tobacco smoker. No barriers to communication noted, The patient speaks fluent Sami, Speaks appropriately for age. - Family history: Not pertinent. - : The pt / caregiver states he / she is not on anticoagulants. Home medication list is obtained from the patient. - Exposure Risk Screening:: None identified. 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 9 in. (175.26 cm) (R); Pain 0/10; 01:56 Body Mass Index 27.32 (83.91 kg, 175.26 cm) jmb MDM: 02:08 Ciprofloxacin Drops 0.3 % 2 drps Ophthalmic once ordered. mo1 02:22 [facility] Payment Agreement was scanned into [employer] and attached to record. hs2 02:28 Financial registration complete. hs2 14:20 T-Sheet-- Draft Copy was scanned into [employer] and attached to record. gb Administered Medications: 02:11 Drug: Ciprofloxacin 2 drps [ciprofloxacin 0.3 % eye drops (2 drps)] Route: Ophthalmic; oliver Site: both eyes; Signatures: Maria L Basilio, Reg Reg gb Sulaiman Colon PA PA mo1 Jeremiah Powell RN RN jmb Marixa Hogan, Reg Reg hs2 The chart was reviewed and I authenticate all verbal orders and agree with the evaluation and treatment provided.Attachments: 02:22 [facility] Payment Agreement hs2 14:20 T-Sheet-- Draft Copy gb MTDD
--- NOTE | 2016-06-22 11:40 | EDDOCDS ---
Physician Documentation [facility] Name: Michelle Orr Age: 41 yrs Sex: Female : 1975 Arrival Date: 06/20/2016 Time: 01:51 Bed Triage 1 Private MD: Malissa Villasenor; Alma Heaton C Disposition: 06/20/16 02:10 Discharged to Home/Self Care. Impression: Other acute conjunctivitis - bacterial. - Condition is Stable. - Discharge Instructions: Bacterial Conjunctivitis. - Medication Reconciliation, Local Pharmacy Hours form. - Follow up: Tomi Powers; When: Call to arrange an appointment; Reason: Recheck today's complaints, Continuance of care. - Problem is new. - Symptoms are unchanged. - Notes: 1-2 drops in each eye every 2hrs while awake x 2 days than every 4 hours for 5 five days Historical: - Allergies: No known drug Allergies; - Home Meds: 1. albuterol sulfate 90 mcg/actuation Inhl HFAA 1 puff as needed 2. liver oil daily 3. med for depression 4. multivitamin Oral tab 1 tab daily - PMHx: Depression; Exercise-induced Asthma; light sensitivity; Migraine Headaches; - PSHx: ; - Social history: Smoking status: Patient uses tobacco products, light tobacco smoker. No barriers to communication noted, The patient speaks fluent Arabic, Speaks appropriately for age. - Family history: Not pertinent. - : The pt / caregiver states he / she is not on anticoagulants. Home medication list is obtained from the patient. - Exposure Risk Screening:: None identified. 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 9 in. (175.26 cm) (R); Pain 0/10; 01:56 Body Mass Index 27.32 (83.91 kg, 175.26 cm) jmb MDM: 02:08 Ciprofloxacin Drops 0.3 % 2 drps Ophthalmic once ordered. mo1 02:22 [facility] Payment Agreement was scanned into [employer] and attached to record. hs2 02:28 Financial registration complete. hs2 14:20 T-Sheet-- Draft Copy was scanned into [employer] and attached to record. gb Administered Medications: 02:11 Drug: Ciprofloxacin 2 drps [ciprofloxacin 0.3 % eye drops (2 drps)] Route: Ophthalmic; oliver Site: both eyes; Signatures: Maria L Basilio, Reg Reg gb Sulaiman Colon PA PA mo1 Jeremiah Powell RN RN jmb Marixa Hogan, Reg Reg hs2 The chart was reviewed and I authenticate all verbal orders and agree with the evaluation and treatment provided.Attachments: 02:22 [facility] Payment Agreement hs2 14:20 T-Sheet-- Draft Copy gb MTDD
--- NOTE | 2016-06-22 11:42 | EDDOCDS ---
Physician Documentation [facility] Name: Michelle Orr Age: 41 yrs Sex: Female : 1975 Arrival Date: 06/20/2016 Time: 01:51 Bed Triage 1 Private MD: Malissa Villasenor; Alma Heaton C Disposition: 06/20/16 02:10 Discharged to Home/Self Care. Impression: Other acute conjunctivitis - bacterial. - Condition is Stable. - Discharge Instructions: Bacterial Conjunctivitis. - Medication Reconciliation, Local Pharmacy Hours form. - Follow up: Tomi Powers; When: Call to arrange an appointment; Reason: Recheck today's complaints, Continuance of care. - Problem is new. - Symptoms are unchanged. - Notes: 1-2 drops in each eye every 2hrs while awake x 2 days than every 4 hours for 5 five days Historical: - Allergies: No known drug Allergies; - Home Meds: 1. albuterol sulfate 90 mcg/actuation Inhl HFAA 1 puff as needed 2. liver oil daily 3. med for depression 4. multivitamin Oral tab 1 tab daily - PMHx: Depression; Exercise-induced Asthma; light sensitivity; Migraine Headaches; - PSHx: ; - Social history: Smoking status: Patient uses tobacco products, light tobacco smoker. No barriers to communication noted, The patient speaks fluent Azeri, Speaks appropriately for age. - Family history: Not pertinent. - : The pt / caregiver states he / she is not on anticoagulants. Home medication list is obtained from the patient. - Exposure Risk Screening:: None identified. 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 9 in. (175.26 cm) (R); Pain 0/10; 01:56 Body Mass Index 27.32 (83.91 kg, 175.26 cm) jmb MDM: 02:08 Ciprofloxacin Drops 0.3 % 2 drps Ophthalmic once ordered. mo1 02:22 [facility]PLACED BY [facility] Payment Agreement was scanned into [employer] and attached to record. hs2 02:28 Financial registration complete. hs2 14:20 T-Sheet-- Draft Copy was scanned into [employer] and attached to record. gb Administered Medications: 02:11 Drug: Ciprofloxacin 2 drps [ciprofloxacin 0.3 % eye drops (2 drps)] Route: Ophthalmic; oliver Site: both eyes; Signatures: Maria L Basilio, Reg Reg gb Sulaiman Colon PA PA mo1 Jeremiah Powell RN RN jmb Marixa Hogan, Reg Reg hs2 The chart was reviewed and I authenticate all verbal orders and agree with the evaluation and treatment provided.Attachments: 02:22 REPLACED BY [facility] Payment Agreement hs2 14:20 T-Sheet-- Draft Copy gb Chart Complete MTDD
--- NOTE | 2016-06-22 11:42 | EDDOCDS ---
Nurse's Notes [facility] Name: Michelle Orr Age: 41 yrs Sex: Female : 1975 Arrival Date: 06/20/2016 Time: 01:51 Bed Triage 1 Private MD: Malissa Villasenor; Alma Heaton C Diagnosis: Other acute conjunctivitis-bacterial Presentation: 06/20 01:55 Presenting complaint: Patient states: Patient reports that she has pink eye and she jmb feels that it is getting worse. Symptoms present for past month. Patient seen last week for same issue. Adult Sepsis Screening: The patient does not have new or worsening altered mentation. Patient's respiratory rate is less than 22. Systolic blood pressure is greater than 100. Patient has a qSOFA score of 0- Negative Sepsis Screen. Suicide/Homicide risk assessment- the patient denies having any suicidal and/or homicidal ideations and does not present with any other emotional, behavioral or mental health complaints. 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 Transition of care: patient was not received from another setting of care. 01:55 Acuity: DILIA Level 4 [facility] 01:55 Method Of Arrival: Walkin/Carried/Asstd [facility] Triage Assessment: 01:56 General: Appears in no apparent distress, Behavior is appropriate for age, cooperative. [facility] Pain: Denies pain. HIV screening NA for this visit Offered previously. Neurological: Level of Consciousness is awake, alert, obeys commands, Oriented to person, place, time, Speech is normal, Facial symmetry appears normal, Facial symmetry: tongue is midline. Respiratory: Airway is patent Respiratory effort is even, unlabored, Respiratory pattern is regular, symmetrical. GI: Abdomen is non- distended. Derm: Skin is pink, warm & dry. Musculoskeletal: Range of motion intact in all extremities. 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 albuterol sulfate 90 mcg/actuation Inhl HFAA 1 puff as needed 2. liver oil daily 3. med for depression 4. multivitamin Oral tab 1 tab daily - PMHx: Depression; Exercise-induced Asthma; light sensitivity; Migraine Headaches; - PSHx: ; - Social history: Smoking status: Patient uses tobacco products, light tobacco smoker. No barriers to communication noted, The patient speaks fluent Maori, Speaks appropriately for age. - Family history: Not pertinent. - : The pt / caregiver states he / she is not on anticoagulants. Home medication list is obtained from the patient. - Exposure Risk Screening:: None identified. Screenin:16 Screening information is obtained from the patient. Fall risk: No risks identified. jmb Assistance ADL's: requires no assistance with activities of daily living. Abuse/DV Screen: The patient / caregiver reports he/she is: not in a situation that causes fear, pain or injury. Nutritional screening: No deficits noted. Advance Directives: Currently, there is no health care proxy. There is no active DNR order. There is no living will. There is no Power of Manager Battery. home support is adequate. Assessment: 02:16 General: Patient instructed on discharge instructions. Patient asked if there were any [facility] questions regarding discharge, patient stated no. Patient signed discharge instructions. Patient discharged in stable condition. . Vital Signs: 01:56 BP 145 / 87; Pulse 97; Resp 18; Temp 97.3; Pulse Ox 99% on R/A; Weight 83.91 kg (R); b Height 5 ft. 9 in. (175.26 cm) (R); Pain 0/10; 01:56 Body Mass Index 27.32 (83.91 kg, 175.26 cm) [facility] Vitals: 01:56 Log In Time: June 20, 2016 at 01:31. [facility] ED Course: 01:52 Patient visited by Jeb Aviles Reg. pm4 01:52 Patient moved to Waiting pm4 01:53 Alma Heaton is Private Physician. pm4 01:53 Malissa Villasenor is Private Physician. pm4 01:56 Triage Initiated jmb 01:59 Sulaiman Colon PA is PHCP. mo1 01:59 Masood Amin DO is Attending Physician. mo1 01:59 Patient moved to Triage 1 jmb 02:09 Patient visited by Sulaiman Colon PA. mo1 02:10 Tomi Powers is Referral Physician. mo1 02:16 The patient / caregiver is instructed regarding the plan of care and ED course. jmb 02:16 No IV's were initiated during this patient's visit. No procedures done that require jmb assistance. 02:22 [facility] Payment Agreement was scanned into [employer] and attached to record. hs2 05:20 Patient name changed from Michelle\S\Mattie\S\Coellohidalgo\S\ to Michelle\S\Mattie\S\Coellohildago.EDMS 14:20 T-Sheet-- Draft Copy was scanned into [employer] and attached to record. gb Administered Medications: 02:11 Drug: Ciprofloxacin 2 drps [ciprofloxacin 0.3 % eye drops (2 drps)] Route: Ophthalmic; [facility] Site: both eyes; Order Results: There are currently no results for this order. Outcome: 02:10 Discharge ordered by Provider. mo1 02:16 Discharge Assessment: Patient awake, alert and oriented x 3. No cognitive and/or jmb functional deficits noted. Patient verbalized understanding of disposition instructions. Patient awake and alert. obeys commands, Oriented to person, place and time. Patient verbalized understanding of disposition instructions. Patient has no functional deficits. patient administered narcotics - no. The following High Risk Discharge criteria are identified: None. Discharged to home ambulatory. Condition: stable. Discharge instructions given to patient, Instructed on discharge instructions, follow up and referral plans. Demonstrated understanding of instructions, Pt was receptive of discharge instructions/ teaching. No special radiology studies were completed. Property sent home with patient. 02:17 Patient left the ED. b Addendum: 06/22/2016 11:39 Narrative: appt made for 06/23/[address] rinaldi. srm Signatures: [facility] Lacy Upton RN RN srm Maria L Basilio, Reg Reg gb Sulaiman Colon PA PA mo1 Jeremiah Powell RN RN jmb Marixa Hogan, Reg Reg hs2 Jeb Aviles, Reg Reg pm4 Chart Complete MTDD
--- NOTE | 2016-06-22 11:42 | EDDOCDS ---
Physician Documentation [facility] Name: Michelle Orr Age: 41 yrs Sex: Female : 1975 Arrival Date: 06/20/2016 Time: 01:51 Bed Triage 1 Private MD: Malissa Villasenor; Alma Heaton C Disposition: 06/20/16 02:10 Discharged to Home/Self Care. Impression: Other acute conjunctivitis - bacterial. - Condition is Stable. - Discharge Instructions: Bacterial Conjunctivitis. - Medication Reconciliation, Local Pharmacy Hours form. - Follow up: Tomi Powers; When: Call to arrange an appointment; Reason: Recheck today's complaints, Continuance of care. - Problem is new. - Symptoms are unchanged. - Notes: 1-2 drops in each eye every 2hrs while awake x 2 days than every 4 hours for 5 five days Historical: - Allergies: No known drug Allergies; - Home Meds: 1. albuterol sulfate 90 mcg/actuation Inhl HFAA 1 puff as needed 2. liver oil daily 3. med for depression 4. multivitamin Oral tab 1 tab daily - PMHx: Depression; Exercise-induced Asthma; light sensitivity; Migraine Headaches; - PSHx: ; - Social history: Smoking status: Patient uses tobacco products, light tobacco smoker. No barriers to communication noted, The patient speaks fluent Telugu, Speaks appropriately for age. - Family history: Not pertinent. - : The pt / caregiver states he / she is not on anticoagulants. Home medication list is obtained from the patient. - Exposure Risk Screening:: None identified. 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 Vital Signs: 01:56 BP 145 / 87; Pulse 97; Resp 18; Temp 97.3; Pulse Ox 99% on R/A; Weight 83.91 kg / jmb 184.99 lbs (R); Height 5 ft. 9 in. (175.26 cm) (R); Pain 0/10; 01:56 Body Mass Index 27.32 (83.91 kg, 175.26 cm) jmb MDM: 02:08 Ciprofloxacin Drops 0.3 % 2 drps Ophthalmic once ordered. mo1 02:22 [facility] Payment Agreement was scanned into [employer] and attached to record. hs2 02:28 Financial registration complete. hs2 14:20 T-Sheet-- Draft Copy was scanned into [employer] and attached to record. gb Administered Medications: 02:11 Drug: Ciprofloxacin 2 drps [ciprofloxacin 0.3 % eye drops (2 drps)] Route: Ophthalmic; oliver Site: both eyes; Signatures: Maria L Basilio, Reg Reg gb Sulaiman Colon PA PA mo1 Jeremiah Powell RN RN jmb Marixa Hogan, Reg Reg hs2 The chart was reviewed and I authenticate all verbal orders and agree with the evaluation and treatment provided.Attachments: 02:22 [facility] Payment Agreement hs2 14:20 T-Sheet-- Draft Copy gb Chart Complete MTDD
== END 2016-06-20 02:17 | disposition home or self-care (01) ==
LOC: M ED 01:51
DX: H10.022 Other mucopurulent conjunctivitis, left eye (principal); F32.9 Major depressive disorder, single episode, unspecified; J45.990 Exercise induced bronchospasm; G43.909 Migraine, unspecified, not intractable, without status migrainosus; F17.210 Nicotine dependence, cigarettes, uncomplicated; Z79.899 Other long term (current) drug therapy; Z79.51 Long term (current) use of inhaled steroids